=== PATIENT | female | born 1980 | race Caucasian/White ===

== ENCOUNTER 2023-09-20 14:56 | Emergency (ER) | payer BC ==
[2023-09-20] MEDS ORDERED: Sodium Chloride 0.9% 10 ML Syringe FLUSH PRN (15:09)
[2023-09-20 15:24] LABS: BASOPHILS ABSOLUTE AUTO 0.02 10^3/uL (0.00-0.10); BASOPHILS PERCENT AUTO 0.2 % (0.0-1.0); HEMATOCRIT 37.8 % (37.0-47.0); HEMOGLOBIN 12.4 g/dL (12.0-16.0); IMMATURE GRAN ABSOLUTE AUTO 0.01 10^3/uL (0.00-0.50); IMMATURE GRAN PERCENT AUTO 0.1 % (0.0-5.0); LYMPHOCYTES ABSOLUTE AUTO 1.31 10^3/uL (1.00-4.00); LYMPHOCYTES PERCENT AUTO 15.3 % (20.0-40.0); MEAN CORPUSCULAR HEMOGLOBIN 28.4 pg (27.0-31.0); MEAN CORPUSCULAR HGB CONC 32.8 g/dL (32.0-36.0); MEAN CORPUSCULAR VOLUME 86.7 fL (82.0-92.0); MEAN PLATELET VOLUME 9.5 fL (7.4-10.4); MONOCYTES ABSOLUTE AUTO 0.36 10^3/uL (0.10-0.80); MONOCYTES PERCENT AUTO 4.2 % (2.0-8.0); NEUTROPHILS ABSOLUTE AUTO 6.88 10^3/uL (2.50-7.00); NEUTROPHILS PERCENT AUTO 80.2 % (50.0-70.0); PLATELET COUNT,PLT 335 10^3/uL (150-400); RED BLOOD CELL COUNT 4.36 10^6/uL (3.80-5.50); RED CELL DISTRIBUTION WIDTH 14.4 % (11.5-14.5); WHITE BLOOD CELL COUNT,WBC 8.58 10^3/uL (5.00-10.00)
[2023-09-20 15:29] LABS: APPEARANCE,URINE CLEAR (CLEAR); BILIRUBIN,URINE NEGATIVE (NEGATIVE); COLOR,URINE YELLOW (YELLOW); GLUCOSE,URINE NEGATIVE (NEGATIVE); KETONES,URINE 15 mg/dL (NEGATIVE); LEUKOCYTE ESTERASE,URINE NEGATIVE (NEGATIVE); NITRITE,URINE NEGATIVE (NEGATIVE); OCCULT BLOOD,URINE TRACE-INTACT (NEGATIVE); PH,URINE 5.5 (5.0-9.0); PROTEIN,URINE NEGATIVE (NEGATIVE); UROBILINOGEN,URINE 0.2 E.U./dL (0.2-1.0)
[2023-09-20 15:30] LABS: BACTERIA,URINE RARE /HPF (NONE TO FEW); EPITHELIAL CELLS,URINE FEW /LPF; RBC,URINE 0-5 /HPF (0-5); WBC,URINE 0-5 /HPF (0-5)
[2023-09-20] MEDS: Sodium Chloride 0.9% 1,000 ML IV ONE (15:33)
[2023-09-20 15:40] LABS: ALANINE AMINOTRANSFERASE,ALT 16 U/L (14-63); ALBUMIN 4.02 g/dL (3.40-5.00); ALKALINE PHOSPHATASE 52 U/L (46-116); ANION GAP 14.9 mmol/L (5-15); ASPARTATE AMNIOTRANSFERASE,AST 14 U/L (15-37); BILIRUBIN TOTAL 0.4 mg/dL (0.2-1.0); BLOOD UREA NITROGEN,BUN 6 mg/dL (7-18); CALCIUM 9.3 mg/dL (8.7-10.3); CARBON DIOXIDE,CO2 26.8 mmol/L (21.0-32.0); CHLORIDE,CL 100 mmol/L (98-107); CREATININE 0.75 mg/dL (0.51-1.17); EST CRCL DRUG DOSING (CG) 95.02 mL/min; ESTIMATED GFR 102 mL/min (>=60); GLUCOSE RANDOM 88 mg/dL (70-140); POTASSIUM,K 3.7 mmol/L (3.5-5.1); PROTEIN TOTAL,TP 7.3 g/dL (6.4-8.2); SODIUM,NA 138 mmol/L (136-145)
[2023-09-20 15:42] LABS: HCG QUALITATIVE,SERUM NEGATIVE (NEGATIVE)
[2023-09-20] MEDS: Iopamidol 755 Mg/ML 100 ML Bottle IV ONE (16:00)
[2023-09-20] MEDS: Sodium Chloride 0.9% 50 ML IV SCH (16:00)
[2023-09-20] MEDS: Ketorolac 30 MG/ML SDV IVPUSH ONE (16:22)
[2023-09-20 16:30] VITALS: BP 149/90; PULSE 85
== END 2023-09-20 17:30 | disposition home or self-care (01) ==
LOC: KA.ED 14:56
DX: N83.202 Unspecified ovarian cyst, left side (principal); F17.200 Nicotine dependence, unspecified, uncomplicated; Z79.899 Other long term (current) drug therapy; Z91.048 Other nonmedicinal substance allergy status
CPT/HCPCS: 74177; 80053; 81001; 84703; 85025; 96361; 96374; 99284; 99284-25; J1885; J3490; J7030; Q9967